=== PATIENT | female | born 1955 | race Caucasian/White ===

== ENCOUNTER → 2020-11-17 | Outpatient (CLI) | payer OTHER ==
[~2020-11-17] MED LIST: ACETAMINOPHEN-1 EAC1 PO; ALBUTEROL2.5 MG/3 M INH; CALCIUM CITRAT1 EAC1 PO; CHLORTHALIDONE50 MG PO; CLONIDINE HCL0.2 MG PO; CRESTOR 10 MG T10 MG PO; CYANOCOBAL1000 MCG/1 IM; DICLOFENAC GEL TD; ELIQUIS2.5 MG PO; GABAPENTIN800 MG PO; HYDROCODON-ACE1 EAC2 PO; IPRATROPIU0.2 MG/1 M INH; LABETALOL HCL300 MG PO; ONDANSETRON HCL8 MG PO; PAIN TD; PERCOCET 5/325 T1 EA PO; PRAMIPEXOLE DI0.5 MG PO; PROAIR HFA8.5 GM INH; PROTONIX 40 MG40 M1 PO; RAMIPRIL10 MG PO; TIZANIDINE HCL4 MG PO
[2020-11-17 10:36] LABS: HEMOGLOBIN 11.9 gm/dl (12.3-15.3); RED BLOOD COUNT 4.03 M/UL (4.00-5.10); WHITE BLOOD COUNT 5.6 K/UL (4.5-11.0)
[2020-11-17 11:17] LABS: BUN/CREATININE RATIO 26 (0-10)
== END ==
LOC: OPSV2 09:00 → EDSTATUS 09:00 → OPSV2 09:45
PROVIDERS: Orthopaedic Surgery
DX: Z01.818 Encounter for other preprocedural examination (principal); T84.032A Mechanical loosening of internal right knee prosthetic joint, initial encounter; M21.961 Unspecified acquired deformity of right lower leg
CPT/HCPCS: 36415; 80048; 81001; 85025; 85652; 86140; 87081; 93005

== ENCOUNTER → 2020-11-22 | Outpatient (CLI) | payer OTHER ==
[2020-11-22 11:39] LABS: BUN/CREATININE RATIO 24 (0-10)
== END ==
LOC: LAB 09:34
PROVIDERS: Orthopaedic Surgery
DX: Z01.812 Encounter for preprocedural laboratory examination (principal)
CPT/HCPCS: 36415; 80048; 86850; 86900; 86901

== ENCOUNTER 2020-11-23 06:39 | Inpatient (IN) | payer OTHER ==
[~2020-11-23] VITALS: Ht 152.4 cm; Wt 81.6 kg
[2020-11-23] MEDS ORDERED: IPRATROPIU0.2 MG/1 M INH (07:30)
[2020-11-23] MEDS ORDERED: CYANOCOBAL1000 MCG/1 IM (07:31)
[2020-11-23] MEDS ORDERED: ALBUTEROL2.5 MG/3 M INH (07:31)
[2020-11-23] MEDS ORDERED: ACETAMINOPHEN-1 EAC1 PO (07:32)
[2020-11-23] MEDS ORDERED: GABAPENTIN800 MG PO (07:33)
[2020-11-23] MEDS ORDERED: PRAMIPEXOLE DI0.5 MG PO (07:33)
[2020-11-23] MEDS ORDERED: CRESTOR 10 MG T10 MG PO (07:34)
[2020-11-23] MEDS ORDERED: CHLORTHALIDONE50 MG PO (07:34)
[2020-11-23] MEDS ORDERED: PROTONIX 40 MG40 M1 PO (07:35)
[2020-11-23] MEDS ORDERED: RAMIPRIL10 MG PO (07:37)
[2020-11-23] MEDS ORDERED: LABETALOL HCL300 MG PO (07:38)
[2020-11-23] MEDS ORDERED: TIZANIDINE HCL4 MG PO (07:39)
[2020-11-23] MEDS ORDERED: CALCIUM CITRAT1 EAC1 PO (07:39)
[2020-11-23] MEDS ORDERED: PAIN TD (07:41)
[2020-11-23] MEDS ORDERED: ONDANSETRON HCL8 MG PO (07:41)
[2020-11-23] MEDS ORDERED: DICLOFENAC GEL TD (07:42)
[2020-11-23] MEDS ORDERED: CLONIDINE HCL0.2 MG PO (07:43)
[2020-11-23] MEDS ORDERED: PROAIR HFA8.5 GM INH (07:44)
[2020-11-23] MEDS ORDERED: HYDROCODON-ACE1 EAC2 PO (14:02)
[2020-11-23] MEDS ORDERED: PERCOCET 5/325 T1 EA PO (16:29)
[2020-11-24 03:18] LABS: RED BLOOD COUNT 3.21 M/UL (4.00-5.10); WHITE BLOOD COUNT 11.9 K/UL (4.5-11.0)
[2020-11-24 03:20] LABS: HEMOGLOBIN 9.5 gm/dl (12.3-15.3)
[2020-11-24 03:42] LABS: BUN/CREATININE RATIO 31 (0-10)
[2020-11-25 03:32] LABS: HEMOGLOBIN 8.8 gm/dl (12.3-15.3); RED BLOOD COUNT 2.94 M/UL (4.00-5.10)
[2020-11-25 03:36] LABS: WHITE BLOOD COUNT 8.2 K/UL (4.5-11.0)
[2020-11-25 03:49] LABS: BUN/CREATININE RATIO 24 (0-10)
[2020-11-26 04:35] LABS: HEMOGLOBIN 8.4 gm/dl (12.3-15.3); RED BLOOD COUNT 2.86 M/UL (4.00-5.10); WHITE BLOOD COUNT 6.7 K/UL (4.5-11.0)
[2020-11-26 05:01] LABS: BUN/CREATININE RATIO 17 (0-10)
[2020-11-27 03:59] LABS: HEMOGLOBIN 7.9 gm/dl (12.3-15.3); RED BLOOD COUNT 2.66 M/UL (4.00-5.10); WHITE BLOOD COUNT 5.9 K/UL (4.5-11.0)
[2020-11-27 04:20] LABS: BUN/CREATININE RATIO 22 (0-10)
[2020-11-27 13:20] LABS: HEMOGLOBIN 8.6 gm/dl (12.3-15.3)
[2020-11-27] MEDS ORDERED: ELIQUIS2.5 MG PO (16:15)
== END 2020-11-28 11:18 | disposition home health service (06) | DRG 467 ==
LOC: ZOBSOF 06:39 → EDSTATUS 09:15 → M/S 14:31
PROVIDERS: Internal Medicine Infectious Disease; Physician Assistant Medical; ADMIT Orthopaedic Surgery
PROC: 0SRC0J9 Replacement of Right Knee Joint with Synthetic Substitute, Cemented, Open Approach (ICD-10-PCS; 2020-11-23)
PROC: 0SPC0JZ Removal of Synthetic Substitute from Right Knee Joint, Open Approach (ICD-10-PCS; principal; 2020-11-23 09:15)
DX: T84.032A Mechanical loosening of internal right knee prosthetic joint, initial encounter (principal); D62 Acute posthemorrhagic anemia; I10 Essential (primary) hypertension; K21.9 Gastro-esophageal reflux disease without esophagitis; I50.9 Heart failure, unspecified; E66.9 Obesity, unspecified; Z20.822 Contact with and (suspected) exposure to COVID-19; I11.0 Hypertensive heart disease with heart failure; Z96.653 Presence of artificial knee joint, bilateral; G89.29 Other chronic pain; M21.161 Varus deformity, not elsewhere classified, right knee; E78.5 Hyperlipidemia, unspecified; M79.7 Fibromyalgia; Z88.6 Allergy status to analgesic agent; Z90.49 Acquired absence of other specified parts of digestive tract; Z88.5 Allergy status to narcotic agent; Z88.0 Allergy status to penicillin; Z79.899 Other long term (current) drug therapy; Z68.35 Body mass index [BMI] 35.0-35.9, adult; Z83.3 Family history of diabetes mellitus; Z82.49 Family history of ischemic heart disease and other diseases of the circulatory system; Z91.030 Bee allergy status; Z91.011 Allergy to milk products; Z83.49 Family history of other endocrine, nutritional and metabolic diseases
CPT/HCPCS: 36415; 71045; 73560; 76000; 80048; 83735; 84132; 85014; 85018; 85025; 85027; 86850; 86900; 86901; 87070; 87205; 94664; 94760; 97110-GP-CQ; 97116-GP-CQ; 97161; 97166; 97530-GP-CQ; 97535; C1751; C1776; J0171; J0690; J1100; J1170; J1644; J2001; J2250; J2405; J2704; J3010; J3370; J3420; J7030; J7050; J7070; J7120